=== PATIENT | female | born 1995 | race Caucasian/White ===

== ENCOUNTER 2018-06-20 23:57 | Emergency (ER) | payer MEDICAID ==
[2018-06-20 23:57] VITALS: BMI 17.2
[2018-06-21] MEDS ORDERED: Tdap Vaccine 0.5 ml Vial (10-64 yrs) IM ONE ×2 (00:45→00:54)
[2018-06-21 02:07] VITALS: RESP 16
[2018-06-21 02:36] VITALS: BP 118/79; PULSE 59; TEMP 98.6; O2SAT 100
--- NOTE | 2018-06-21 02:40 | C.PDOC ---
History Of Present Illness 23 year old female presents to the ED for evaluation of right foot pain which began yesterday. Patient states she accidentally dropped a the drawer of a dresser onto her foot while at work. She denies any other injuries or extremity numbness/weakness at this time. Patient is up-to-date with Tetanus immunization. Time Seen by Provider: 06/21/18 00:26 Chief Complaint (Nursing): Lower Extremity Problem/Injury History Per: Patient History/Exam Limitations: no limitations Onset/Duration Of Symptoms: Hrs Current Symptoms Are (Timing): Still Present Additional History Per: Patient Past Medical History Reviewed: Historical Data, Nursing Documentation, Vital Signs Vital Signs: Last Vital Signs Temp 98.6 F 06/21/18 02:36 Pulse 59 L 06/21/18 02:36 Resp 16 06/21/18 02:36 BP 118/79 06/21/18 02:36 Pulse Ox 100 06/21/18 02:46 - Medical History PMH: Anemia Surgical History: No Surg Hx Family History: States: Unknown Family Hx - Social History Hx Tobacco Use: No Hx Alcohol Use: No Hx Substance Use: No - Immunization History Hx Tetanus Toxoid Vaccination: No Hx Influenza Vaccination: No Hx Pneumococcal Vaccination: No Review Of Systems Musculoskeletal: Positive for: Foot Pain (right) Neurological: Negative for: Weakness, Numbness Physical Exam - Physical Exam Appears: Non-toxic, No Acute Distress Skin: Normal Color, Warm, Dry, Other (1cm abrasion to dorum of right foot ) Extremity: Tenderness (to right 2nd and 3rd metatarsals ), Capillary Refill ( less than 2 seconds ), Swelling (to right 2nd and 3rd metatarsals ) Pulses: Left Dorsalis Pedis: Normal, Right Dorsalis Pedis: Normal Neurological/Psych: Oriented x3, Normal Speech, Normal Cognition, Normal Sensation ED Course And Treatment O2 Sat by Pulse Oximetry: 100 (on RA) Pulse Ox Interpretation: Normal Medical Decision Making Medical Decision Making: Impression: 23 year old female with right foot pain Plan: * Right foot XR * reassess and disposition Progress: Right foot XR ordered and reviewed. 0255 xray reveiwed, no fx noted. d/c with post op shoe, nsaids and podiatry f/u Disposition Counseled Patient/Family Regarding: Studies Performed, Diagnosis, Need For Followup, Rx Given - Disposition Referrals: [facility] [Outside] Podiatry Clinic [Outside] Disposition: HOME/ ROUTINE Disposition Time: 02:56 Condition: GOOD Additional Instructions: Please wear post op shoe when walking for comfort. Wear cherelle bandage for comfort. Keep right foot elevated whenever possible. Cold compresses to foot several tinmes a day. Ibuprofen every 4-6 hours. for pain. Follow up with either podiatry clinic; call on Saturday for appointment. 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 - Scribe Statement The provider has reviewed the documentation as recorded by the Scribe (Precious Penny) All medical record entries made by the Scribe were at my direction and personally dictated by me. I have reviewed the chart and agree that the record accurately reflects my personal performance of the history, physical exam, medical decision making, and the department course for this patient. I have also personally directed, reviewed, and agree with the discharge instructions and disposition.
--- NOTE | 2018-06-21 10:05 | RAD ---
Date of service: 06/21/2018 PROCEDURE: Right Foot Radiographs. HISTORY: pain and swelling dorsum foot, dropped something COMPARISON: None. FINDINGS: BONES: No acute fracture or destructive bony lesion identified. A small bone island is seen associated with the cuboid bone anteriorly. JOINTS: Normal. SOFT TISSUES: Limited soft tissue edema is seen at the dorsal midfoot. OTHER FINDINGS: None. IMPRESSION: No acute fracture or dislocation right foot. Limited dorsal midfoot soft tissue edema noted.
== END 2018-06-21 03:04 | disposition home or self-care (01) ==
LOC: C.ER 23:57
DX: S90.31XA Contusion of right foot, initial encounter (principal); W22.8XXA Striking against or struck by other objects, initial encounter; Y92.89 Other specified places as the place of occurrence of the external cause; Y99.0 Civilian activity done for income or pay

== ENCOUNTER 2019-02-21 14:42 | Inpatient (IN) | payer MEDICAID ==
[2019-02-21 14:42] VITALS: BMI 17.2
[2019-02-21] MEDS ORDERED: Sodium Chloride 0.9% 1,000 ML IV ONE ×2 (15:10→18:05)
[2019-02-21] MEDS ORDERED: Dexamethasone 4 mg/1 ml IV STA (15:11)
[2019-02-21] MEDS ORDERED: Dexamethasone 4 mg/1 ml ONE (15:23)
[2019-02-21] MEDS ORDERED: Sodium Chloride 0.9% 1,000 ML ONE (15:23)
--- NOTE | 2019-02-21 15:28 | C.PDOC ---
History Of Present Illness 23 y/o female comes in complaining of a sore throat, difficulty swallowing, fever, nausea, vomiting, and body aches since 4 days ago. Patient reports shes been taking ibuprofen with minimal relief. She denies any other associated s ymptoms. Time Seen by Provider: 02/21/19 14:47 Chief Complaint (Nursing): Flu-like Symptoms History Per: Patient History/Exam Limitations: no limitations Onset/Duration Of Symptoms: Days Current Symptoms Are (Timing): Still Present Past Medical History Reviewed: Historical Data, Nursing Documentation, Vital Signs Vital Signs: Last Vital Signs Temp 99.8 F H 02/21/19 14:44 Pulse 103 H 02/21/19 14:44 Resp 17 02/21/19 14:44 BP 121/89 02/21/19 14:44 Pulse Ox 100 02/21/19 14:44 - Medical History PMH: Anemia Family History: States: Unknown Family Hx - Social History Hx Tobacco Use: No Hx Alcohol Use: Yes Hx Substance Use: No - Immunization History Hx Tetanus Toxoid Vaccination: Yes Hx Influenza Vaccination: Yes Hx Pneumococcal Vaccination: No Review Of Systems Constitutional: Positive for: Fever, Other (Bodyaches). Negative for: Chills ENT: Positive for: Other (Sore throat) Cardiovascular: Negative for: Chest Pain Respiratory: Negative for: Cough, Shortness of Breath Gastrointestinal: Positive for: Nausea, Vomiting. Negative for: Abdominal Pain Genitourinary: Negative for: Dysuria, Hematuria Skin: Negative for: Rash Neurological: Negative for: Headache, Dizziness Physical Exam - Physical Exam Appears: Non-toxic, No Acute Distress, Other (hoarse muffled voice) Skin: Warm, Dry, No Rash Head: Atraumatic, Normacephalic Eye(s): bilateral: PERRL, EOMI Ear(s): Bilateral: Normal Oral Mucosa: Moist Throat: Erythema (markedly erythematous pharynx with bilateral enlarged tonsils with white exudates) Lymphatic: Other (markedly enlarged submandibular adenopathy bilaterally) Cardiovascular: Rhythm Regular, No Murmur Respiratory: No Accessory Muscle Use, No Rales, No Rhonchi, No Wheezing Extremity: No Pedal Edema Extremity: Bilateral: Atraumatic, Normal ROM Neurological/Psych: Oriented x3, Normal Speech, Normal Cognition ED Course And Treatment - Laboratory Results Result Diagrams: 02/21/19 15:34 02/21/19 15:34 O2 Sat by Pulse Oximetry: 100 (RA) Pulse Ox Interpretation: Normal - CT Scan/US Soft Tissue Neck CT Other Rad Studies (CT/US): Read By Radiologist, Radiology Report Reviewed CT/US Interpretation: IMPRESSION: Enlargement of the palatine tonsils with lesser enlargement of the lingual and adenoidal tonsils. Asymmetric, left greater than right. Mild displacement of the airway towards the right with mild narrowing. No abscess. There is edema or inflammatory change seen in the left parapharyngeal space. Cervical lymphadenopathy bilaterally. Medical Decision Making Medical Decision Making: Plan: --Labs --Blood culture --Rapid Strep --POC urine --UA --Decadron 10 mg IV --IV fluids 1L --Tylenol PO --Zofran 4 mg IVP --CT soft tissue neck concerned for SYSTEM ADMINISTRATION MANAGER. 1744 ct neg for abscess but show some mild narrowing of airway. pt has no stridor, no drooling. blood sent for monospot, will admot to Dr Dante Penny for observation and iv hydration. 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 - Scribe Statement The provider has reviewed the documentation as recorded by the Scribe Coty Strauss All medical record entries made by the Memeibmele were at my direction and p ersonally dictated by me. I have reviewed the chart and agree that the record accurately reflects my personal performance of the history, physical exam, medical decision making, and the department course for this patient. I have also personally directed, reviewed, and agree with the discharge instructions and disposition.
[2019-02-21 15:38] LABS: BASO # 0.1 K/uL (0.0-0.2); BASO % 0.4 % (0.0-2.0); EOS # 0.2 K/uL (0.0-0.7); EOS % 1.5 % (0.0-4.0); HEMOGLOBIN 12.4 g/dL (11.0-16.0); LYMPH # 1.8 K/uL (1.0-4.3); LYMPH % 13.8 % (20.0-40.0); MEAN CELL VOLUME 85.1 fL (81.0-99.0); MEAN CORPUSCULAR HEMOGLOBIN 28.2 pg (27.0-31.0); MEAN CORPUSCULAR HGB CONC 33.1 g/dL (33.0-37.0); MEAN PLATELET VOLUME 8.8 fL (7.2-11.7); MONO # 2.3 K/uL (0.0-0.8); MONO % 17.9 % (0.0-10.0); NEUT # 8.6 K/uL (1.8-7.0); NEUT % 66.4 % (50.0-75.0); RBC 4.41 Mil/uL (3.80-5.20); RED CELL DISTRIBUTION WIDTH 13.3 % (11.5-14.5); WHITE BLOOD COUNT 12.9 K/uL (4.8-10.8)
[2019-02-21 15:51] LABS: ALB/GLOB RATIO 1.2 (1.0-2.1); ALBUMIN 4.6 g/dL (3.5-5.0); ALT/SGPT 18 U/L (9-52); AST/SGOT 21 U/L (14-36); BLOOD UREA NITROGEN 6 mg/dL (7-17); CALCIUM 9.6 mg/dl (8.6-10.4); GFR NON-AFRICAN AMERICAN > 60
[2019-02-21] MEDS ORDERED: Potassium Chloride 20 mEq/15 ml LIQ UD PO STA (15:54)
[2019-02-21 15:57] LABS: SQUAMOUS EPITHIAL 6 /hpf (0-5); URINE BACTERIA RARE (<OCC); URINE BILIRUBIN 1+ (NEGATIVE); URINE BLOOD NEGATIVE (NEGATIVE); URINE CLARITY Hazy (Clear); URINE COLOR Amber (YELLOW); URINE GLUCOSE (UA) NORMAL (Normal); URINE LEUKOCYTE ESTERASE 2+ Leu/uL (Negative); URINE PROTEIN 2+ mg/dL (NEGATIVE)
[2019-02-21] MEDS ORDERED: Iodixanol 320 MG/ML 100 ML BOTTLE IV ONE (15:57)
[2019-02-21] MEDS ORDERED: Clindamycin 600mg/50ml D5W 600 MG/50 ML VIAL IVPB SCH (16:00)
[2019-02-21] MEDS ORDERED: Potassium Chloride 20 mEq ER Tab PO ONE (16:04)
[2019-02-21] MEDS ORDERED: Clindamycin 600mg/50ml NS 600 MG/50 ML BAG IVPB ONE (16:05)
[2019-02-21] MEDS ORDERED: Clindamycin 600mg/50ml D5W 600 MG/50 ML VIAL IVPB STA (16:10)
[2019-02-21] MEDS ORDERED: Potassium Chloride 20 mEq/15 ml LIQ UD ONE (16:11)
--- NOTE | 2019-02-21 17:33 | CT ---
Date of service: 02/21/2019 PROCEDURE: CT NECK WITH CONTRAST HISTORY: bilateral tonsil swelling, hoarse voice COMPARISON: None available. TECHNIQUE: CT of the neck with intravenous contrast. Coronal and sagittal reformats generated. Intravenous contrast dose: 100 mL Visipaque 320 Radiation dose: Total exam DLP = 374.34 mGy-cm. This CT exam was performed using one or more of the following dose reduction techniques: Automated exposure control, adjustment of the mA and/or kV according to patient size, and/or use of iterative reconstruction technique. FINDINGS: NASOPHARYNX: Mild asymmetric fullness of the left nasopharynx common nonspecific. Direct visualization is suggested. SUPRAHYOID NECK: Marked enlargement of the palatine tonsils bilaterally, left greater than right. No abscess identified. There is mild enlargement of the lingual tonsils. There is mild enlargement of the adenoidal tonsils. There is hazy density or edema of the left parapharyngeal space consistent with an inflammatory process. There is mild narrowing of the airway with displacement towards the right. The epiglottis is normal in appearance. There is mild asymmetry of the valleculae likely due to collapse of the left locule at the time of this examination. INFRAHYOID NECK: Unremarkable larynx, hypopharynx, and supraglottic space. Vocal cords intact. MASS: None. GLANDS: Parotid and submandibular glands unremarkable. Normal size thyroid gland, without nodule. LYMPH NODES: Bilateral enlarged cervical nodes up to 1.5 cm in short axis. Nonspecific. CERVICAL SPINE: No fracture or focal lesion. VASCULAR STRUCTURES: Unremarkable. OTHER FINDINGS: None. IMPRESSION: Enlargement of the palatine tonsils with lesser enlargement of the lingual and adenoidal tonsils. Asymmetric, left greater than right. Mild displacement of the airway towards the right with mild narrowing. No abscess. There is edema or inflammatory change seen in the left parapharyngeal space. Cervical lymphadenopathy bilaterally.
[2019-02-21] MEDS: Clindamycin 300 MG in Sodium Chloride 0.9% 50 ML IVPB SCH (21:08)
[2019-02-21] MEDS ORDERED: MethylPREDNISolone 40 mg Vial IVP SCH (22:00)
--- NOTE | 2019-02-21 22:33 | CP.PCM.CON ---
History of Present Illness - History of Present Illness History of Present Illness: 23 y/o female with no significant PMH c/o complaining of a sore throat, difficulty swallowing, fever, nausea, vomiting, and body aches for 4 days.She took ibuprofen with minimal relief. no drooling or disfficulty breathing.Has dry cough Review of Systems - Constitutional Constitutional: Anorexia, Chills, Fever. absent: Night Sweats - EENT Eyes: absent: Discharge, Itchy Eyes Ears: absent: Ear Discharge, Dizziness Nose/Mouth/Throat: Sore Throat, Neck Pain. absent: Nasal Congestion, Hoarsness - Cardiovascular Cardiovascular: absent: Chest Pain, Leg Edema, Palpitations - Respiratory Respiratory: Cough. absent: Dyspnea, Wheezing, Stridor - Gastrointestinal Gastrointestinal: Nausea, Vomiting. absent: Abdominal Pain - Genitourinary Genitourinary: absent: Dysuria - Musculoskeletal Musculoskeletal: absent: Arthralgias, Muscle Cramps - Integumentary Integumentary: absent: Dry Skin, Rash - Neurological Neurological: absent: Dizziness, Headaches - Endocrine Endocrine: absent: Palpitations, Polyuria - Hematologic/Lymphatic Hematologic: absent: Easy Bleeding Past Patient History - Past Medical History & Family History Past Medical History?: No - Past Social History Smoking Status: Never Smoked Occupation: student at [employer] Alcohol: None Drugs: Denies Home Situation {Lives}: Alone - HEMATOLOGICAL/ONCOLOGICAL Hx Anemia: Yes (iron transfusions in the past) - PSYCHIATRIC Hx Substance Use: No - SURGICAL HISTORY Hx Surgeries: No - ANESTHESIA Hx Anesthesia: No Meds Allergies/Adverse Reactions: Allergies Allergy/AdvReac Type Severity Reaction Status Date / Time No Known Allergies Allergy Verified 02/21/19 14:47 - Medications Medications: Current Medications Dexamethasone (Decadron Inj) 10 mg IVP Q12H SORIN Stop: 02/22/19 12:01 Ceftriaxone Sodium 1 gm/ (Sodium Chloride) 100 mls @ 100 mls/hr IVPB DAILY SORIN; Protocol Clindamycin Phosphate 300 mg/ (Sodium Chloride) 52 mls @ 100 mls/hr IVPB Q8H SORIN; Protocol Last Admin: 02/21/19 21:08 Dose: 100 mls/hr Ketorolac Tromethamine (Toradol) 15 mg IVP Q8 PRN PRN Reason: Pain, moderate (4-7) Ondansetron HCl (Zofran Inj) 4 mg IVP Q6 PRN PRN Reason: nausea Pantoprazole Sodium (Protonix Inj) 40 mg IVP DAILY SORIN Pneumococcal Polyvalent Vaccine (Pneumovax 23 Vaccine) 0.5 ml IM .ONCE ONE Stop: 02/23/19 10:01 Physical Exam - Constitutional Appears: Non-toxic, No Acute Distress - Head Exam Head Exam: ATRAUMATIC, NORMAL INSPECTION, NORMOCEPHALIC - Eye Exam Eye Exam: EOMI, PERRL. absent: Conjunctival injection, Scleral icterus - ENT Exam ENT Exam: Mucous Membranes Moist, Normal External Ear Exam Additional comments: Swollen ,erythematous tonsils with enlarged tonsils with white exudate - Neck Exam Neck exam: Positive for: Lymphadenopathy Additional comments: bilateral submandibular Lymphnodes enlarged - Respiratory Exam Respiratory Exam: Clear to Auscultation Bilateral, NORMAL BREATHING PATTERN. absent: Rhonchi, Wheezes, Stridor - Cardiovascular Exam Cardiovascular Exam: REGULAR RHYTHM - GI/Abdominal Exam GI & Abdominal Exam: Normal Bowel Sounds, Soft. absent: Tenderness - Extremities Exam Extremities exam: Positive for: normal inspection. Negative for: pedal edema - Neurological Exam Neurological exam: Alert, Oriented x3 Results - Vital Signs Recent Vital Signs: Last Vital Signs Temp 97.7 F 02/21/19 20:01 Pulse 94 H 02/21/19 20:01 Resp 20 02/21/19 20:01 BP 121/85 02/21/19 20:01 Pulse Ox 100 02/21/19 20:27 - Labs Result Diagrams: 02/21/19 15:34 02/21/19 15:34 Labs: Laboratory Results - last 24 hr 02/21/19 02/21/19 02/21/19 15:34 15:34 15:34 WBC 12.9 H RBC 4.41 Hgb 12.4 D Hct 37.6 MCV 85.1 D MCH 28.2 MCHC 33.1 RDW 13.3 Plt Count 274 MPV 8.8 Neut % (Auto) 66.4 Lymph % (Auto) 13.8 L [place] % (Auto) 17.9 H Eos % (Auto) 1.5 Baso % (Auto) 0.4 Neut # (Auto) 8.6 H Lymph # (Auto) 1.8 [place] # (Auto) 2.3 H Eos # (Auto) 0.2 Baso # (Auto) 0.1 Sodium 137 Potassium 3.3 L Chloride 99 Carbon Dioxide 29 Anion Gap 12 BUN 6 L Creatinine 0.7 Est GFR ( Amer) > 60 Est GFR (Non-Af Amer) > 60 Random Glucose 93 D Calcium 9.6 Total Bilirubin 1.0 AST 21 ALT 18 Alkaline Phosphatase 78 Total Protein 8.3 Albumin 4.6 Globulin 3.7 Albumin/Globulin Ratio 1.2 Urine Color Urine Clarity Urine pH Ur Specific [place] Urine Protein Urine Glucose (UA) Urine Ketones Urine Blood Urine Nitrate Urine Bilirubin Urine Urobilinogen Ur Leukocyte Esterase Urine WBC (Auto) Urine RBC (Auto) Ur Squamous Epith Cells Urine Bacteria Hyaline Casts Infectious [place] Assay Influenza Typ A,B (EIA) Grp A Beta Strep Ag Negative 02/21/19 02/21/19 02/21/19 15:34 17:54 18:29 WBC RBC Hgb Hct MCV MCH MCHC RDW Plt Count MPV Neut % (Auto) Lymph % (Auto) [place] % (Auto) Eos % (Auto) Baso % (Auto) Neut # (Auto) Lymph # (Auto) [place] # (Auto) Eos # (Auto) Baso # (Auto) Sodium Potassium Chloride Carbon Dioxide Anion Gap BUN Creatinine Est GFR ( Amer) Est GFR (Non-Af Amer) Random Glucose Calcium Total Bilirubin AST ALT Alkaline Phosphatase Total Protein Albumin Globulin Albumin/Globulin Ratio Urine Color [place] Urine Clarity Hazy Urine pH 5.0 Ur Specific [place] 1.029 Urine Protein 2+ H Urine Glucose (UA) Normal Urine Ketones 2+ H Urine Blood Negative Urine Nitrate Negative Urine Bilirubin 1+ H Urine Urobilinogen 4.0 H Ur Leukocyte Esterase 2+ H Urine WBC (Auto) 30 H Urine RBC (Auto) 2 Ur Squamous Epith Cells 6 H Urine Bacteria Rare Hyaline Casts 6-10 H Infectious [place] Assay Negative Influenza Typ A,B (EIA) Negative for flu a/b Grp A Beta Strep Ag Assessment & Plan - Assessment and Plan (Free Text) Assessment: 1.Pharyngitis- CT neck with Enlargement of the palatine tonsils with lesser enlargement of the lingual and adenoidal tonsils. Asymmetric, left greater than right. Mild dis placement of the airway towards the right with mild narrowing. No abscess. There is edema or inflammatory change seen in the left parapharyngeal space. Cervical lymphadenopathy bilaterally received antibiotics and dexamethasone patient feels better since admission,no drooling or stridor 2.hypokalemia potassium replaced,f/u with repeat continue monitoring on 3T
[2019-02-22] MEDS: Dexamethasone 4 mg/1 ml IVP SCH ×2 (00:27→12:47)
[2019-02-22] MEDS: Clindamycin 300 MG in Sodium Chloride 0.9% 50 ML IVPB SCH ×3 (03:10→20:00)
[2019-02-22 08:00] LABS: BASO % 0.1 % (0.0-2.0); HEMOGLOBIN 11.4 g/dL (11.0-16.0); LYMPH # 1.1 K/uL (1.0-4.3); LYMPH % 9.8 % (20.0-40.0); MEAN CELL VOLUME 84.7 fL (81.0-99.0); MEAN CORPUSCULAR HEMOGLOBIN 28.8 pg (27.0-31.0); MEAN CORPUSCULAR HGB CONC 33.9 g/dL (33.0-37.0); MEAN PLATELET VOLUME 8.5 fL (7.2-11.7); MONO # 0.5 K/uL (0.0-0.8); MONO % 4.4 % (0.0-10.0); NEUT # 9.8 K/uL (1.8-7.0); NEUT % 85.7 % (50.0-75.0); NRBC % 0.1 % (0.0-2.0); PLATELET COUNT 283 K/uL (130-400); RBC 3.96 Mil/uL (3.80-5.20); RED CELL DISTRIBUTION WIDTH 13.3 % (11.5-14.5); WHITE BLOOD COUNT 11.4 K/uL (4.8-10.8)
[2019-02-22 08:19] LABS: ALB/GLOB RATIO 1.2 (1.0-2.1); ALBUMIN 3.6 g/dL (3.5-5.0); ALT/SGPT 20 U/L (9-52); AST/SGOT 18 U/L (14-36); BLOOD UREA NITROGEN 6 mg/dL (7-17); CALCIUM 8.8 mg/dl (8.6-10.4); GFR NON-AFRICAN AMERICAN > 60
[2019-02-22 11:39] LABS: BANDS 2 % (0-2); LYMPHOCYTE 9 % (20-40); MONOCYTE 4 % (0-10); NEUTROPHIL 85 % (50-75); PLATELET ESTIMATE NORMAL (NORMAL); TOTAL CELLS COUNTED 100
[2019-02-22 11:40] LABS: ANISOCYTOSIS SLIGHT; TOXIC GRANULATION PRESENT
[2019-02-22 11:48] LABS: HYPOCHROMIC SLIGHT; POLYCHROMIC SLIGHT
--- NOTE | 2019-02-22 15:33 | CP.PCM.HP ---
Present on Admission - Present on Admission Any Indicators Present on Admission: No Past Patient History - Past Medical History & Family History Past Medical History?: No - Past Social History Smoking Status: Never Smoked Occupation: student at [employer] Alcohol: None Drugs: Denies Home Situation {Lives}: Alone - HEMATOLOGICAL/ONCOLOGICAL Hx Anemia: Yes (iron transfusions in the past) - PSYCHIATRIC Hx Substance Use: No - SURGICAL HISTORY Hx Surgeries: No - ANESTHESIA Hx Anesthesia: No Meds Allergies/Adverse Reactions: Allergies Allergy/AdvReac Type Severity Reaction Status Date / Time No Known Allergies Allergy Verified 02/21/19 14:47 Physical Exam - Constitutional Appears: Well - Head Exam Head Exam: ATRAUMATIC, NORMAL INSPECTION, NORMOCEPHALIC - Eye Exam Eye Exam: EOMI, Normal appearance, PERRL Pupil Exam: NORMAL ACCOMODATION, PERRL - ENT Exam ENT Exam: Mucous Membranes Moist, Normal Exam - Neck Exam Neck exam: Positive for: Normal Inspection - Respiratory Exam Respiratory Exam: Decreased Breath Sounds - Cardiovascular Exam Cardiovascular Exam: REGULAR RHYTHM, +S1, +S2 - GI/Abdominal Exam GI & Abdominal Exam: Diminished Bowel Sounds, Soft - Rectal Exam Rectal Exam: Deferred Results - Vital Signs Recent Vital Signs: Last Vital Signs Temp 98 F 02/22/19 07:30 Pulse 79 02/22/19 07:30 Resp 20 02/22/19 07:30 BP 119/83 02/22/19 07:30 Pulse Ox 97 02/22/19 12:00 - Labs Result Diagrams: 02/22/19 07:50 02/22/19 07:50 Labs: Laboratory Results - last 24 hr 02/21/19 02/21/19 02/21/19 15:34 15:34 15:34 WBC 12.9 H RBC 4.41 Hgb 12.4 D Hct 37.6 MCV 85.1 D MCH 28.2 MCHC 33.1 RDW 13.3 Plt Count 274 MPV 8.8 Neut % (Auto) 66.4 Lymph % (Auto) 13.8 L [place] % (Auto) 17.9 H Eos % (Auto) 1.5 Baso % (Auto) 0.4 Neut # (Auto) 8.6 H Lymph # (Auto) 1.8 [place] # (Auto) 2.3 H Eos # (Auto) 0.2 Baso # (Auto) 0.1 Neutrophils % (Manual) Band Neutrophils % Lymphocytes % (Manual) Monocytes % (Manual) Toxic Granulation Platelet Estimate Polychromasia Hypochromasia (manual) Anisocytosis (manual) Sodium 137 Potassium 3.3 L Chloride 99 Carbon Dioxide 29 Anion Gap 12 BUN 6 L Creatinine 0.7 Est GFR ( Amer) > 60 Est GFR (Non-Af Amer) > 60 Random Glucose 93 D Calcium 9.6 Total Bilirubin 1.0 AST 21 ALT 18 Alkaline Phosphatase 78 Total Protein 8.3 Albumin 4.6 Globulin 3.7 Albumin/Globulin Ratio 1.2 Urine Color Urine Clarity Urine pH Ur Specific [place] Urine Protein Urine Glucose (UA) Urine Ketones Urine Blood Urine Nitrate Urine Bilirubin Urine Urobilinogen Ur Leukocyte Esterase Urine WBC (Auto) Urine RBC (Auto) Ur Squamous Epith Cells Urine Bacteria Hyaline Casts Infectious [place] Assay Influenza Typ A,B (EIA) Grp A Beta Strep Ag Negative 02/21/19 02/21/19 02/21/19 15:34 17:54 18:29 WBC RBC Hgb Hct MCV MCH MCHC RDW Plt Count MPV Neut % (Auto) Lymph % (Auto) [place] % (Auto) Eos % (Auto) Baso % (Auto) Neut # (Auto) Lymph # (Auto) [place] # (Auto) Eos # (Auto) Baso # (Auto) Neutrophils % (Manual) Band Neutrophils % Lymphocytes % (Manual) Monocytes % (Manual) Toxic Granulation Platelet Estimate Polychromasia Hypochromasia (manual) Anisocytosis (manual) Sodium Potassium Chloride Carbon Dioxide Anion Gap BUN Creatinine Est GFR ( Amer) Est GFR (Non-Af Amer) Random Glucose Calcium Total Bilirubin AST ALT Alkaline Phosphatase Total Protein Albumin Globulin Albumin/Globulin Ratio Urine Color [place] Urine Clarity Hazy Urine pH 5.0 Ur Specific [place] 1.029 Urine Protein 2+ H Urine Glucose (UA) Normal Urine Ketones 2+ H Urine Blood Negative Urine Nitrate Negative Urine Bilirubin 1+ H Urine Urobilinogen 4.0 H Ur Leukocyte Esterase 2+ H Urine WBC (Auto) 30 H Urine RBC (Auto) 2 Ur Squamous Epith Cells 6 H Urine Bacteria Rare Hyaline Casts 6-10 H Infectious [place] Assay Negative Influenza Typ A,B (EIA) Negative for flu a/b Grp A Beta Strep Ag 02/22/19 02/22/19 07:50 07:50 WBC 11.4 H RBC 3.96 Hgb 11.4 Hct 33.6 L MCV 84.7 MCH 28.8 MCHC 33.9 RDW 13.3 Plt Count 283 MPV 8.5 Neut % (Auto) 85.7 H Lymph % (Auto) 9.8 L [place] % (Auto) 4.4 Eos % (Auto) 0.0 Baso % (Auto) 0.1 Neut # (Auto) 9.8 H Lymph # (Auto) 1.1 [place] # (Auto) 0.5 Eos # (Auto) 0.0 Baso # (Auto) 0.0 Neutrophils % (Manual) 85 H Band Neutrophils % 2 Lymphocytes % (Manual) 9 L Monocytes % (Manual) 4 Toxic Granulation Present Platelet Estimate Normal Polychromasia Slight Hypochromasia (manual) Slight Anisocytosis (manual) Slight Sodium 139 Potassium 3.9 Chloride 108 H Carbon Dioxide 24 Anion Gap 11 BUN 6 L Creatinine 0.5 L Est GFR ( Amer) > 60 Est GFR (Non-Af Amer) > 60 Random Glucose 126 H D Calcium 8.8 Total Bilirubin 0.4 AST 18 ALT 20 Alkaline Phosphatase 68 Total Protein 6.8 Albumin 3.6 Globulin 3.1 Albumin/Globulin Ratio 1.2 Urine Color Urine Clarity Urine pH Ur Specific [place] Urine Protein Urine Glucose (UA) Urine Ketones Urine Blood Urine Nitrate Urine Bilirubin Urine Urobilinogen Ur Leukocyte Esterase Urine WBC (Auto) Urine RBC (Auto) Ur Squamous Epith Cells Urine Bacteria Hyaline Casts Infectious [place] Assay Influenza Typ A,B (EIA) Grp A Beta Strep Ag Assessment & Plan - Assessment and Plan (Free Text) Plan: Continue IV Rocephin IV clindamycin Pantoprazole Status post ICU Awaiting ENT consultations ID consultations Labs reviewed Medicine reviewed Vital signs reviewed
--- NOTE | 2019-02-22 23:10 | CP.PCM.CON ---
History of Present Illness - History of Present Illness History of Present Illness: INFECTIOUS DISEASE CONSULT; HPI; 23 y/o female with no significant PMH c/o complaining of a sore throat, difficulty swallowing, fever, nausea, vomiting, and body aches for 4 days.She took ibuprofen with minimal relief. no drooling or disfficulty breathing.Has dry cough . PATIENT WAS PLACED ON iv CEFTRIAXONE 1 G ONCE A DAY DAILY/AND iv cLEOCIN 300 MG EVERY 8 HOURLY. PATIENT ALSO WAS PLACED ON DEXAMETHASONE 10 MG iv PIGGYBACK EVERY 12 HOURLY 2 DOSES. PATIENT PRESENTLY HAS LESS DYSPHAGIA. RAPID GROUP A STREP ANTIGEN IS NEGATIVE.SO IS mONOSPOT. rapid influenza antigen also negative. INFECTIOUS DISEASE CONSULTATION REQUESTED FOR SORE THROAT,DYSPHAGIA AND LARYNGEAL EDEMA. CT SCAN NECK -FINDINGS NOTED.+ve enlarged palatine tonsils with increased lingual/adenoid tonsils L>RT, mILD NARROWING AND DISPLACEMENT OF AIRWAY TO THE RIGHT, -VE ABSCESS.( see full detail )ENT AWARE. Medical history: denies Allergies: Denies Surgical history:denies Review of Systems - Constitutional Constitutional: Chills, Fever - EENT Nose/Mouth/Throat: Odynophagia, Sore Throat. absent: Hoarsness, Neck Mass - Cardiovascular Cardiovascular: absent: Chest Pain, Dyspnea - Respiratory Respiratory: Cough - Gastrointestinal Gastrointestinal: Nausea, Odynophagia, Vomiting. absent: Abdominal Pain, Diarrhea - Genitourinary Genitourinary: absent: Freq UTI - Musculoskeletal Musculoskeletal: absent: Neck Pain - Neurological Neurological: absent: Disequilibrium, Dizziness - Hematologic/Lymphatic Hematologic: As Per HPI, Lymphadenopathy (bilateral small mobile cervical lymp hadenopathy.). absent: Easy Bleeding, Easy Bruising Past Patient History - Past Medical History & Family History Past Medical History?: No - Past Social History Smoking Status: Never Smoked Occupation: student at [employer] Alcohol: None Drugs: Denies Home Situation {Lives}: Alone - HEMATOLOGICAL/ONCOLOGICAL Hx Anemia: Yes (iron transfusions in the past) - PSYCHIATRIC Hx Substance Use: No - SURGICAL HISTORY Hx Surgeries: No - ANESTHESIA Hx Anesthesia: No Meds Allergies/Adverse Reactions: Allergies Allergy/AdvReac Type Severity Reaction Status Date / Time No Known Allergies Allergy Verified 02/21/19 14:47 - Medications Medications: Current Medications Docusate Sodium (Colace) 100 mg PO DAILY [facility] Ceftriaxone Sodium 1 gm/ (Sodium Chloride) 100 mls @ 100 mls/hr IVPB DAILY [facility]; Protocol Last Admin: 02/22/19 09:56 Dose: 100 mls/hr Clindamycin Phosphate 300 mg/ (Sodium Chloride) 52 mls @ 100 mls/hr IVPB Q8H [facility]; Protocol Last Admin: 02/22/19 20:00 Dose: 100 mls/hr Ketorolac Tromethamine (Toradol) 15 mg IVP Q8 PRN PRN Reason: Pain, moderate (4-7) Ondansetron HCl (Zofran Inj) 4 mg IVP Q6 PRN PRN Reason: nausea Pantoprazole Sodium (Protonix Inj) 40 mg IVP DAILY [facility] Last Admin: 02/22/19 09:57 Dose: 40 mg Pneumococcal Polyvalent Vaccine (Pneumovax 23 Vaccine) 0.5 ml IM .ONCE ONE Stop: 02/23/19 10:01 Physical Exam - Constitutional Appears: No Acute Distress - Head Exam Head Exam: NORMAL INSPECTION - Eye Exam Eye Exam: EOMI, PERRL - ENT Exam ENT Exam: Mucous Membranes Moist (tonsils slightly congested specially left side. No exudates or abscess noted. Positive cervical lymphadenopathy.) - Neck Exam Neck exam: Positive for: Lymphadenopathy - Respiratory Exam Respiratory Exam: Clear to Auscultation Bilateral, NORMAL BREATHING PATTERN. absent: Wheezes - Cardiovascular Exam Cardiovascular Exam: REGULAR RHYTHM, +S1, +S2 - GI/Abdominal Exam GI & Abdominal Exam: Normal Bowel Sounds, Soft - Extremities Exam Extremities exam: Positive for: pedal pulses present. Negative for: calf tenderness, pedal edema - Neurological Exam Neurological exam: Alert, CN II-XII Intact, Oriented x3, Reflexes Normal - Psychiatric Exam Psychiatric exam: Normal Mood - Skin Skin Exam: Normal Color, Warm Results - Vital Signs Recent Vital Signs: Last Vital Signs Temp 98.5 F 02/22/19 16:00 Pulse 81 02/22/19 16:00 Resp 20 02/22/19 16:00 BP 106/71 02/22/19 16:00 Pulse Ox 97 02/22/19 16:53 - Labs Result Diagrams: 02/23/19 07:17 02/23/19 07:17 Labs: Laboratory Results - last 24 hr 02/22/19 02/22/19 07:50 07:50 WBC 11.4 H RBC 3.96 Hgb 11.4 Hct 33.6 L MCV 84.7 MCH 28.8 MCHC 33.9 RDW 13.3 Plt Count 283 MPV 8.5 Neut % (Auto) 85.7 H Lymph % (Auto) 9.8 L Crowley % (Auto) 4.4 Eos % (Auto) 0.0 Baso % (Auto) 0.1 Neut # (Auto) 9.8 H Lymph # (Auto) 1.1 Crowley # (Auto) 0.5 Eos # (Auto) 0.0 Baso # (Auto) 0.0 Neutrophils % (Manual) 85 H Band Neutrophils % 2 Lymphocytes % (Manual) 9 L Monocytes % (Manual) 4 Toxic Granulation Present Platelet Estimate Normal Polychromasia Slight Hypochromasia (manual) Slight Anisocytosis (manual) Slight Sodium 139 Potassium 3.9 Chloride 108 H Carbon Dioxide 24 Anion Gap 11 BUN 6 L Creatinine 0.5 L Est GFR ( Amer) > 60 Est GFR (Non-Af Amer) > 60 Random Glucose 126 H D Calcium 8.8 Total Bilirubin 0.4 AST 18 ALT 20 Alkaline Phosphatase 68 Total Protein 6.8 Albumin 3.6 Globulin 3.1 Albumin/Globulin Ratio 1.2 Assessment & Plan (1) Laryngeal edema Status: Acute (2) Pharyngitis Status: Acute - Assessment and Plan (Free Text) Assessment: PLAN; CASE DISCUSSED WITH ICU TEAM /DIGITAL MUSIC INSTRUCTOR DR NINA. pATIENT PRESENTLY FEELING SLIGHTLY BETTER AFTER DEXAMETHASONE AND ANTIBIOTICS. OKAY TO OBSERVE THE PATIENT ON THE FLOOR. CONTINUE iv ANTIBIOTICS. CXR F/U CULTURES WILL FOLLOW PATIENT,
[2019-02-23] MEDS: Clindamycin 300 MG in Sodium Chloride 0.9% 50 ML IVPB SCH ×3 (04:27→20:22)
[2019-02-23 07:55] LABS: ALB/GLOB RATIO 1.1 (1.0-2.1); ALBUMIN 3.3 g/dL (3.5-5.0); ALT/SGPT 23 U/L (9-52); AST/SGOT 19 U/L (14-36); BASO % 0.2 % (0.0-2.0); BLOOD UREA NITROGEN 6 mg/dL (7-17); CALCIUM 8.8 mg/dl (8.6-10.4); EOS % 0.1 % (0.0-4.0); GFR NON-AFRICAN AMERICAN > 60; LYMPH # 2.9 K/uL (1.0-4.3); LYMPH % 16.6 % (20.0-40.0); MEAN CELL VOLUME 85.5 fL (81.0-99.0); MEAN CORPUSCULAR HEMOGLOBIN 28.1 pg (27.0-31.0); MEAN CORPUSCULAR HGB CONC 32.9 g/dL (33.0-37.0); MEAN PLATELET VOLUME 9.4 fL (7.2-11.7); MONO # 1.9 K/uL (0.0-0.8); MONO % 10.9 % (0.0-10.0); NEUT # 12.6 K/uL (1.8-7.0); NEUT % 72.2 % (50.0-75.0); NRBC % 0.1 % (0.0-2.0); RBC 3.93 Mil/uL (3.80-5.20); RED CELL DISTRIBUTION WIDTH 13.4 % (11.5-14.5)
[2019-02-23 07:59] LABS: WHITE BLOOD COUNT 17.4 K/uL (4.8-10.8)
--- NOTE | 2019-02-23 09:40 | CP.PCM.PN ---
<Iam Jara - Last Filed: 02/23/19 15:29> Subjective - Date & Time of Evaluation Date of Evaluation: 02/23/19 Time of Evaluation: 09:40 - Subjective Subjective: 23 y/o female comes in complaining of a sore throat, difficulty swallowing, fever, nausea, vomiting, and body aches since 4 days ago. Patient described the pain as sharp and throbbing in nature located in her throat. Patient denies any recent travel, shortness of breath, abdominal pain, constipation diarrhea, changes in vision, syncopal episodes, or any other complaints. Medical history: denies Allergies: Denies Surgical history:denies Objective - Vital Signs/Intake and Output Vital Signs (last 24 hours): Temp Pulse Resp BP Pulse Ox 97.8 F 71 16 115/76 98 02/23/19 00:27 02/23/19 00:27 02/23/19 00:27 02/23/19 00:27 02/23/19 08:00 Intake and Output: 02/23/19 02/23/19 06:59 18:59 Intake Total 1380 Balance 1380 - Medications Medications: Current Medications Docusate Sodium (Colace) 100 mg PO DAILY [facility] Last Admin: 02/23/19 09:28 Dose: 100 mg Ceftriaxone Sodium 1 gm/ (Sodium Chloride) 100 mls @ 100 mls/hr IVPB DAILY [facility]; Protocol Last Admin: 02/23/19 09:27 Dose: 100 mls/hr Clindamycin Phosphate 300 mg/ (Sodium Chloride) 52 mls @ 100 mls/hr IVPB Q8H [facility]; Protocol Last Admin: 02/23/19 04:27 Dose: 100 mls/hr Ketorolac Tromethamine (Toradol) 15 mg IVP Q8 PRN PRN Reason: Pain, moderate (4-7) Last Admin: 02/23/19 07:09 Dose: 15 mg Ondansetron HCl (Zofran Inj) 4 mg IVP Q6 PRN PRN Reason: nausea Pantoprazole Sodium (Protonix Inj) 40 mg IVP DAILY [facility] Last Admin: 02/23/19 09:29 Dose: 40 mg Pneumococcal Polyvalent Vaccine (Pneumovax 23 Vaccine) 0.5 ml IM .ONCE ONE Stop: 02/23/19 10:01 Last Admin: 02/23/19 09:29 Dose: Not Given - Labs Labs: 02/23/19 07:17 02/23/19 07:17 - Head Exam Head Exam: ATRAUMATIC, NORMAL INSPECTION, NORMOCEPHALIC - Eye Exam Eye Exam: EOMI, Normal appearance, PERRL. absent: Periorbital tenderness Pupil Exam: NORMAL ACCOMODATION, PERRL. absent: Irregular, Unequal - ENT Exam ENT Exam: Mucous Membranes Moist, Normal Oropharynx - Respiratory Exam Respiratory Exam: Clear to Ausculation Bilateral, NORMAL BREATHING PATTERN - Cardiovascular Exam Cardiovascular Exam: REGULAR RHYTHM, +S1, +S2 - GI/Abdominal Exam GI & Abdominal Exam: Soft, Normal Bowel Sounds. absent: Hyperactive Bowel Sounds - Extremities Exam Extremities Exam: Normal Inspection. absent: Full ROM, Pedal Edema - Back Exam Back Exam: NORMAL INSPECTION. absent: CVA tenderness (R), paraspinal tenderness - Neurological Exam Neurological Exam: Alert, Awake, CN II-XII Intact, Oriented x3 - Psychiatric Exam Psychiatric exam: Normal Affect, Normal Mood. absent: Depressed - Skin Skin Exam: Dry, Intact, Normal Color Assessment and Plan - Assessment and Plan (Free Text) Assessment: 23 year old female presents to the hospital with shortness of breath for the past couple of days. Plan: 1.Laryngeal edema Soft tissue neck ct: Enlargement of the palatine tonsils with lesser enlargement of the lingual and adenoidal tonsils. Asymmetric, left greater than right. Mild displacement of the airway towards the right with mild narrowing. No abscess. There is edema or inflammatory change seen in the left parapharyngeal space. Cervical lymphadenopathy bilaterally. -ICU consulted. :continue monitoring on 3T -ENT Dr Turner consulted ---> Help appreciated -Infectious Disease consulted---> Help appreciated. Medications: Ceftriaxone 1gm IVPB Daily Clindamycin 300mg IVPB Q8 Daily Zofran 4mg IVP Q6 PRN Toradol 15mg IVP Q8 PRN PPX -Protonix 40mg IVP Daily Dispo: Expected to go to the O.R. tomorrow for tonsillectomy. NPO past midnight. All management per Attending Dr. Ethel Penny. Iam Jara, PGY-2 <Bharat Cook - Last Filed: 02/23/19 23:52> Objective - Vital Signs/Intake and Output Vital Signs (last 24 hours): Temp Pulse Resp BP Pulse Ox 98.4 F 77 18 127/84 97 02/23/19 15:57 02/23/19 15:57 02/23/19 15:58 02/23/19 15:57 02/23/19 15:58 Intake and Output: 02/23/19 02/24/19 18:59 06:59 Intake Total 550 410 Balance 550 410 - Medications Medications: Current Medications Docusate Sodium (Colace) 100 mg PO DAILY [facility] Last Admin: 02/23/19 09:28 Dose: 100 mg Ceftriaxone Sodium 1 gm/ (Sodium Chloride) 100 mls @ 100 mls/hr IVPB DAILY [facility]; Protocol Last Admin: 02/23/19 09:27 Dose: 100 mls/hr Clindamycin Phosphate 300 mg/ (Sodium Chloride) 52 mls @ 100 mls/hr IVPB Q8H [facility]; Protocol Last Admin: 02/23/19 20:22 Dose: 100 mls/hr Ketorolac Tromethamine (Toradol) 15 mg IVP Q8 PRN PRN Reason: Pain, moderate (4-7) Last Admin: 02/23/19 15:45 Dose: 15 mg Ondansetron HCl (Zofran Inj) 4 mg IVP Q6 PRN PRN Reason: nausea Pantoprazole Sodium (Protonix Inj) 40 mg IVP DAILY [facility] Last Admin: 02/23/19 09:29 Dose: 40 mg - Labs Labs: 02/23/19 07:17 02/23/19 07:17
[2019-02-23] MEDS ORDERED: Pneumococcal 23-Valent Vaccine IM ONE (10:00)
--- NOTE | 2019-02-23 19:20 | CP.PCM.PN ---
Subjective - Date & Time of Evaluation Date of Evaluation: 02/23/19 - Subjective Subjective: patient was seen and examined no nausea no diarrhea no shortness of breath Objective - Vital Signs/Intake and Output Vital Signs (last 24 hours): Temp Pulse Resp BP Pulse Ox 98.4 F 77 18 127/84 97 02/23/19 15:57 02/23/19 15:57 02/23/19 15:58 02/23/19 15:57 02/23/19 15:58 Intake and Output: 02/23/19 02/24/19 18:59 06:59 Intake Total 550 Balance 550 - Medications Medications: Current Medications Docusate Sodium (Colace) 100 mg PO DAILY [facility] Last Admin: 02/23/19 09:28 Dose: 100 mg Ceftriaxone Sodium 1 gm/ (Sodium Chloride) 100 mls @ 100 mls/hr IVPB DAILY [facility]; Protocol Last Admin: 02/23/19 09:27 Dose: 100 mls/hr Clindamycin Phosphate 300 mg/ (Sodium Chloride) 52 mls @ 100 mls/hr IVPB Q8H [facility]; Protocol Last Admin: 02/23/19 12:07 Dose: 100 mls/hr Ketorolac Tromethamine (Toradol) 15 mg IVP Q8 PRN PRN Reason: Pain, moderate (4-7) Last Admin: 02/23/19 15:45 Dose: 15 mg Ondansetron HCl (Zofran Inj) 4 mg IVP Q6 PRN PRN Reason: nausea Pantoprazole Sodium (Protonix Inj) 40 mg IVP DAILY [facility] Last Admin: 02/23/19 09:29 Dose: 40 mg - Labs Labs: 02/23/19 07:17 02/23/19 07:17 - Constitutional Appears: Well - Head Exam Head Exam: ATRAUMATIC, NORMAL INSPECTION, NORMOCEPHALIC - Eye Exam Eye Exam: EOMI, Normal appearance, PERRL Pupil Exam: NORMAL ACCOMODATION, PERRL - ENT Exam ENT Exam: Mucous Membranes Moist, Normal Exam - Neck Exam Neck Exam: Full ROM, Normal Inspection. absent: Lymphadenopathy - Respiratory Exam Respiratory Exam: Decreased Breath Sounds - Cardiovascular Exam Cardiovascular Exam: REGULAR RHYTHM, +S1, +S2 - GI/Abdominal Exam GI & Abdominal Exam: Soft, Diminished Bowel Sounds - Rectal Exam Rectal Exam: Deferred Assessment and Plan - Assessment and Plan (Free Text) Plan: zofran injection sodium chloride colace Protonix Toradol labs reviewed case seen and dw with staff
--- NOTE | 2019-02-23 20:00 | OP ---
PROCEDURE DATE: 02/23/2019 PREOPERATIVE DIAGNOSIS: Possible airway obstruction. POSTOPERATIVE DIAGNOSIS: Possible airway obstruction. PROCEDURE: Flexible laryngoscopy. SURGEON: Oscar Turner MD. SIGNIFICANT FINDINGS: Airway obstruction as noted. DESCRIPTION OF PROCEDURE: The patient was brought in to the room, was placed in the supine position. The nose was decongested using Afrin. Flexible laryngoscope was inserted into the nasal cavity, passed to the oropharynx and hypopharynx. The base of tongue, vallecula, pharyngeal smith, epiglottis, AE folds, false cords, true cords, arytenoids piriform sinuses were brought into view. No masses or lesions were noted. No erythema or edema was noted. Airway is okay. Oscar Turner MD
[2019-02-24] MEDS: Clindamycin 300 MG in Sodium Chloride 0.9% 50 ML IVPB SCH ×4 (03:15→21:19)
[2019-02-24 06:17] LABS: BASO % 0.4 % (0.0-2.0); EOS # 0.3 K/uL (0.0-0.7); EOS % 2.5 % (0.0-4.0); LYMPH # 3.9 K/uL (1.0-4.3); MEAN CELL VOLUME 84.7 fL (81.0-99.0); MEAN CORPUSCULAR HEMOGLOBIN 27.4 pg (27.0-31.0); MEAN CORPUSCULAR HGB CONC 32.3 g/dL (33.0-37.0); MEAN PLATELET VOLUME 8.3 fL (7.2-11.7); MONO # 1.6 K/uL (0.0-0.8); MONO % 13.6 % (0.0-10.0); NEUT # 6.2 K/uL (1.8-7.0); NEUT % 51.5 % (50.0-75.0); NRBC % 0.1 % (0.0-2.0); RBC 4.39 Mil/uL (3.80-5.20); RED CELL DISTRIBUTION WIDTH 13.3 % (11.5-14.5); WHITE BLOOD COUNT 12.1 K/uL (4.8-10.8)
[2019-02-24 06:37] LABS: ALB/GLOB RATIO 1.4 (1.0-2.1); ALT/SGPT 18 U/L (9-52); AST/SGOT 16 U/L (14-36); BLOOD UREA NITROGEN 7 mg/dL (7-17); CALCIUM 8.7 mg/dl (8.6-10.4); GFR NON-AFRICAN AMERICAN > 60
[2019-02-24 06:41] LABS: INR 1.1; PROTHROMBIN TIME 11.8 SECONDS (9.7-12.2)
--- NOTE | 2019-02-24 09:00 | RAD ---
Date of service: 02/24/2019 HISTORY: R/O PNEUMONIA COMPARISON: None available. TECHNIQUE: 1 view obtained. FINDINGS: LUNGS: No active pulmonary disease. PLEURA: No significant pleural effusion identified, no pneumothorax apparent. CARDIOVASCULAR: No aortic atherosclerotic calcification present. Normal cardiac size. No pulmonary vascular congestion. OSSEOUS STRUCTURES: No significant abnormalities. VISUALIZED UPPER ABDOMEN: Normal. OTHER FINDINGS: None. IMPRESSION: No active disease.
--- NOTE | 2019-02-24 09:22 | CP.PCM.PN ---
Subjective - Date & Time of Evaluation Date of Evaluation: 02/24/19 Time of Evaluation: 09:22 - Subjective Subjective: PGY-2 Progress Note Patient seen and examined at bedside. Per nursing no acute events occurred overnight. Patient denies any fevers, chills, headaches, dizziness, chest pain, dizziness, syncopal episodes, or any other complaints. Objective - Vital Signs/Intake and Output Vital Signs (last 24 hours): Temp Pulse Resp BP Pulse Ox 98.2 F 84 20 121/83 95 02/24/19 07:34 02/24/19 07:34 02/24/19 07:34 02/24/19 07:34 02/24/19 07:34 Intake and Output: 02/24/19 02/24/19 06:59 18:59 Intake Total 460 Balance 460 - Medications Medications: Current Medications Docusate Sodium (Colace) 100 mg PO DAILY [facility] Last Admin: 02/23/19 09:28 Dose: 100 mg Ceftriaxone Sodium 1 gm/ (Sodium Chloride) 100 mls @ 100 mls/hr IVPB DAILY [facility]; Protocol Last Admin: 02/23/19 09:27 Dose: 100 mls/hr Clindamycin Phosphate 300 mg/ (Sodium Chloride) 52 mls @ 100 mls/hr IVPB Q8H [facility] ; Protocol Last Admin: 02/24/19 03:15 Dose: 100 mls/hr Ketorolac Tromethamine (Toradol) 15 mg IVP Q8 PRN PRN Reason: Pain, moderate (4-7) Last Admin: 02/23/19 15:45 Dose: 15 mg Ondansetron HCl (Zofran Inj) 4 mg IVP Q6 PRN PRN Reason: nausea Pantoprazole Sodium (Protonix Inj) 40 mg IVP DAILY [facility] Last Admin: 02/23/19 09:29 Dose: 40 mg - Labs Labs: 02/24/19 06:08 02/24/19 06:08 PT 11.8 SECONDS (9.7-12.2) 02/24/19 06:08 INR 1.1 02/24/19 06:08 APTT 31 SECONDS (21-34) 02/24/19 06:08 - Head Exam Head Exam: ATRAUMATIC, NORMAL INSPECTION - Eye Exam Eye Exam: EOMI, Normal appearance, PERRL Pupil Exam: NORMAL ACCOMODATION, PERRL - ENT Exam ENT Exam: Mucous Membranes Moist, Normal Oropharynx - Respiratory Exam Respiratory Exam: Clear to Ausculation Bilateral, NORMAL BREATHING PATTERN. absent: Prolonged Expiratory Phase, Respiratory Distress - Cardiovascular Exam Cardiovascular Exam: REGULAR RHYTHM, +S1, +S2 - GI/Abdominal Exam GI & Abdominal Exam: Soft, Normal Bowel Sounds. absent: Hyperactive Bowel Sounds - Extremities Exam Extremities Exam: Full ROM, Normal Inspection. absent: Pedal Edema - Back Exam Back Exam: NORMAL INSPECTION. absent: paraspinal tenderness - Neurological Exam Neurological Exam: Alert, Awake, CN II-XII Intact, Oriented x3 - Psychiatric Exam Psychiatric exam: Normal Affect, Normal Mood. absent: Depressed - Skin Skin Exam: Dry, Intact Assessment and Plan - Assessment and Plan (Free Text) Assessment: 23 year old female presents to the hospital with shortness of breath for the past couple of days. Plan: 1.Laryngeal edema Soft tissue neck ct: Enlargement of the palatine tonsils with lesser enlargement of the lingual and adenoidal tonsils. Asymmetric, left greater than right. Mild displacement of the airway towards the right with mild narrowing. No abscess. There is edema or inflammatory change seen in the left parapharyngeal space. Cervical lymphadenopathy bilaterally. Mononucleosis, Influenzae, Group B strep all negative -ICU consulted. :continue monitoring on 3T -ENT Dr Turner consulted: Left abscess found in the O.R. and drained. -Infectious Disease consulted---> Help appreciated. Medications: Ceftriaxone 1gm IVPB Daily Clindamycin 300mg IVPB Q8 Daily Zofran 4mg IVP Q6 PRN Toradol 15mg IVP Q8 PRN PPX -Protonix 40mg IVP Daily Dispo: Expected to go home tomorrow pending tolerating diet. All management per Attending Dr. Ethel Penny. Iam Jara, PGY-2
[2019-02-24] MEDS ORDERED: ceFAZolin 1 gm in NS 1 GM/100 ML BAG IVPB ONE (10:02)
--- NOTE | 2019-02-24 11:25 | CP.PCM.PN ---
Subjective - Date & Time of Evaluation Date of Evaluation: 02/24/19 - Subjective Subjective: no events overnight no nausea no vomiting no fever Objective - Vital Signs/Intake and Output Vital Signs (last 24 hours): Temp Pulse Resp BP Pulse Ox 98.2 F 84 20 121/83 95 02/24/19 07:34 02/24/19 07:34 02/24/19 07:34 02/24/19 07:34 02/24/19 07:34 Intake and Output: 02/24/19 02/24/19 06:59 18:59 Intake Total 460 Balance 460 - Medications Medications: Current Medications Docusate Sodium (Colace) 100 mg PO DAILY [facility] Last Admin: 02/24/19 10:06 Dose: Not Given Ceftriaxone Sodium 1 gm/ (Sodium Chloride) 100 mls @ 100 mls/hr IVPB DAILY [facility]; Protocol Last Admin: 02/24/19 10:19 Dose: 100 mls/hr Clindamycin Phosphate 300 mg/ (Sodium Chloride) 52 mls @ 100 mls/hr IVPB Q8H [facility]; Protocol Last Admin: 02/24/19 03:15 Dose: 100 mls/hr Ketorolac Tromethamine (Toradol) 15 mg IVP Q8 PRN PRN Reason: Pain, moderate (4-7) Last Admin: 02/24/19 10:18 Dose: 15 mg Ondansetron HCl (Zofran Inj) 4 mg IVP Q6 PRN PRN Reason: nausea Pantoprazole Sodium (Protonix Inj) 40 mg IVP DAILY [facility] Last Admin: 02/24/19 10:17 Dose: 40 mg - Labs Labs: 02/24/19 06:08 02/24/19 06:08 PT 11.8 SECONDS (9.7-12.2) 02/24/19 06:08 INR 1.1 02/24/19 06:08 APTT 31 SECONDS (21-34) 02/24/19 06:08 - Constitutional Appears: Well - Head Exam Head Exam: ATRAUMATIC, NORMAL INSPECTION, NORMOCEPHALIC - Eye Exam Eye Exam: EOMI, Normal appearance, PERRL Pupil Exam: NORMAL ACCOMODATION, PERRL - ENT Exam ENT Exam: Mucous Membranes Moist, Normal Exam - Neck Exam Neck Exam: Full ROM, Normal Inspection. absent: Lymphadenopathy - Respiratory Exam Respiratory Exam: Decreased Breath Sounds - Cardiovascular Exam Cardiovascular Exam: REGULAR RHYTHM, +S1, +S2 - GI/Abdominal Exam GI & Abdominal Exam: Soft, Diminished Bowel Sounds - Rectal Exam Rectal Exam: Deferred Assessment and Plan - Assessment and Plan (Free Text) Plan: medications reviewed acetaminophen colace labs and xray reviewed treatment plan discussed with staff vitals checked
[2019-02-24] MEDS ORDERED: Midazolam 2 MG/2 ML VIAL ONE (11:42)
[2019-02-24] MEDS ORDERED: Propofol 10 mg/ml Inj (20 ML) ONE (11:42)
[2019-02-24] MEDS ORDERED: Succinylcholine Chloride 20 mg/ml Syr (5 ml) IV ONE (11:51)
--- NOTE | 2019-02-24 11:52 | CP.PCM.PN ---
Subjective - Date & Time of Evaluation Date of Evaluation: 02/24/19 Time of Evaluation: 11:52 - Subjective Subjective: AFEBRILE, aWAKE AND ALERT, SEEN POSTOPERATIVELY S/P LEFT TONSILLECTOMY AND DRAINAGE OF THE TONSILLAR ABSCESS. C/O MILD HOARSENESS/ aND PAIN. LABS; REVIEWED CXR : NAD. Objective - Vital Signs/Intake and Output Vital Signs (last 24 hours): Temp Pulse Resp BP Pulse Ox 98.2 F 84 20 121/83 95 02/24/19 07:34 02/24/19 07:34 02/24/19 07:34 02/24/19 07:34 02/24/19 07:34 Intake and Output: 02/24/19 02/24/19 06:59 18:59 Intake Total 460 Balance 460 - Medications Medications: Current Medications Docusate Sodium (Colace) 100 mg PO DAILY [facility] Last Admin: 02/24/19 10:06 Dose: Not Given Ceftriaxone Sodium 1 gm/ (Sodium Chloride) 100 mls @ 100 mls/hr IVPB DAILY [facility]; Protocol Last Admin: 02/24/19 10:19 Dose: 100 mls/hr Clindamycin Phosphate 300 mg/ (Sodium Chloride) 52 mls @ 100 mls/hr IVPB Q8H [facility]; Protocol Last Admin: 02/24/19 03:15 Dose: 100 mls/hr Ketorolac Tromethamine (Toradol) 15 mg IVP Q8 PRN PRN Reason: Pain, moderate (4-7) Last Admin: 02/24/19 10:18 Dose: 15 mg Ondansetron HCl (Zofran Inj) 4 mg IVP Q6 PRN PRN Reason: nausea Pantoprazole Sodium (Protonix Inj) 40 mg IVP DAILY [facility] Last Admin: 02/24/19 10:17 Dose: 40 mg - Labs Labs: 02/24/19 06:08 02/24/19 06:08 PT 11.8 SECONDS (9.7-12.2) 02/24/19 06:08 INR 1.1 02/24/19 06:08 APTT 31 SECONDS (21-34) 02/24/19 06:08 - Constitutional Appears: No Acute Distress - Head Exam Head Exam: NORMAL INSPECTION - Eye Exam Eye Exam: EOMI, PERRL - ENT Exam ENT Exam: Mucous Membranes Moist, Normal Oropharynx - Neck Exam Neck Exam: Lymphadenopathy, Normal Inspection (LT.CERVICAL LYMPHADENOPATHY.) - Respiratory Exam Respiratory Exam: Clear to Ausculation Bilateral, NORMAL BREATHING PATTERN - Cardiovascular Exam Cardiovascular Exam: REGULAR RHYTHM, +S1, +S2 - GI/Abdominal Exam GI & Abdominal Exam: Soft, Normal Bowel Sounds - Extremities Exam Extremities Exam: Normal Capillary Refill. absent: Calf Tenderness, Pedal Edema - Neurological Exam Neurological Exam: Alert, Awake, CN II-XII Intact, Oriented x3, Reflexes Normal - Psychiatric Exam Psychiatric exam: Normal Mood - Skin Skin Exam: Normal Color, Warm Assessment and Plan (1) Status post tonsillectomy Status: Acute (2) Laryngeal edema Status: Acute (3) Pharyngitis Status: Acute - Assessment and Plan (Free Text) Plan: CONTINUE iv ANTIBIOTICS iv rocephin iv cleocin. f/u cultures POST OPT CARE PER ENT.
[2019-02-24] MEDS ORDERED: HYDROmorphone 0.5 mg/0.5 ml ISec IVP PRN (12:16)
[2019-02-24] MEDS ORDERED: Acetaminophen/Codeine elixir 120-12mg/5ml PO PRN (14:00)
--- NOTE | 2019-02-24 22:54 | OP ---
PROCEDURE DATE: 02/24/2019 PREOPERATIVE DIAGNOSIS: Tonsillitis. POSTOPERATIVE DIAGNOSIS: Tonsillitis. PROCEDURE: Tonsillectomy. SIGNIFICANT FINDINGS: Left peritonsillar abscess, infected tonsils. DESCRIPTION OF PROCEDURE: The patient was brought into the room, placed in supine position. Anesthesia was initiated through an ET tube. The patient was draped in the usual manner. A mouth gag was placed in oral cavity, opened and suspended on the [employer] specialist the usual manner. The right tonsil was grabbed, pulled medially. Incision was made in the anterior tonsillar pillar using coblation. Dissection was done between tonsil and tonsillar fossa using coblation until the tonsil was removed. Bleeding was controlled using coblation. Next, the other tonsil was grabbed, pulled medially. Incision was made in the anterior tonsillar pillar using coblation. Dissection was done between tonsil and tonsillar fossa using coblation. During dissection a peritonsillar abscess was noted and opened. Dissections were continued until the tonsil was removed. Bleeding was controlled using coblation. Both tonsillar beds were rubbed vigorously with coblation wand. No bleeding was noted. The mouth gag was let down for 30 seconds, put back up, no bleeding was noted. The mouth gag was taken down and removed. The patient was taken off anesthesia and taken to recovery room in stable manner. Oscar Turner MD JOSE
[2019-02-25] MEDS: Clindamycin 300 MG in Sodium Chloride 0.9% 50 ML IVPB SCH ×3 (04:00→21:48)
--- NOTE | 2019-02-25 07:16 | CP.PCM.PN ---
Subjective - Date & Time of Evaluation Date of Evaluation: 02/25/19 Time of Evaluation: 07:16 - Subjective Subjective: Medicine Progress Note - Dr Ciara Penny's service Patient seen and examined at bedside. Per nursing no acute events overnight. Patient is s/p drainage of peritonsillar abscess. She is tolerating liquid diet. Voice hoarseness is still present. Offers no other complaints at this time. Objective - Vital Signs/Intake and Output Vital Signs (last 24 hours): Temp Pulse Resp BP Pulse Ox 97.6 F 60 20 109/67 96 02/25/19 00:00 02/25/19 00:00 02/25/19 00:00 02/25/19 00:00 02/25/19 00:00 Intake and Output: 02/25/19 02/25/19 06:59 18:59 Intake Total 640 Output Total 500 Balance 140 - Medications Medications: Current Medications Acetaminophen/Codeine Phosphate (Tylenol/Codeine Elixir) 10 ml PO Q6 PRN PRN Reason: Pain, severe (8-10) Stop: 03/03/19 14:01 Docusate Sodium (Colace) [address] [facility] Last Admin: 02/24/19 10:06 Dose: Not Given Ceftriaxone Sodium 1 gm/ (Sodium Chloride) 100 mls @ 100 mls/hr IVPB DAILY [facility]; Protocol Last Admin: 02/24/19 10:19 Dose: 100 mls/hr Clindamycin Phosphate 300 mg/ (Sodium Chloride) 52 mls @ 100 mls/hr IVPB Q8H [facility]; Protocol Last Admin: 02/25/19 04:00 Dose: 100 mls/hr Ketorolac Tromethamine (Toradol) 15 mg IVP Q8 PRN PRN Reason: Pain, moderate (4-7) Last Admin: 02/24/19 10:18 Dose: 15 mg Ondansetron HCl (Zofran Inj) 4 mg IVP Q6 PRN PRN Reason: nausea Pantoprazole Sodium (Protonix Inj) 40 mg IVP DAILY [facility] Last Admin: 02/24/19 10:17 Dose: 40 mg - Labs Labs: 02/24/19 06:08 02/24/19 06:08 PT 11.8 SECONDS (9.7-12.2) 02/24/19 06:08 INR 1.1 02/24/19 06:08 APTT 31 SECONDS (21-34) 02/24/19 06:08 - Additional Findings Additional findings: - Head Exam Head Exam: ATRAUMATIC, NORMAL INSPECTION - Eye Exam Eye Exam: EOMI, Normal appearance, PERRL Pupil Exam: NORMAL ACCOMODATION, PERRL - ENT Exam ENT Exam: Mucous Membranes Moist, Normal Oropharynx - Respiratory Exam Respiratory Exam: Clear to Ausculation Bilateral, NORMAL BREATHING PATTERN. absent: Prolonged Expiratory Phase, Respiratory Distress - Cardiovascular Exam Cardiovascular Exam: REGULAR RHYTHM, +S1, +S2 - GI/Abdominal Exam GI & Abdominal Exam: Soft, Normal Bowel Sounds. absent: Hyperactive Bowel Sounds - Extremities Exam Extremities Exam: Full ROM, Normal Inspection. absent: Pedal Edema - Back Exam Back Exam: NORMAL INSPECTION. absent: paraspinal tenderness - Neurological Exam Neurological Exam: Alert, Awake, CN II-XII Intact, Oriented x3 - Psychiatric Exam Psychiatric exam: Normal Affect, Normal Mood. absent: Depressed - Skin Skin Exam: Dry, Intact Assessment and Plan - Assessment and Plan (Free Text) Assessment: Patient is a 23 year old female presents to the hospital with shortness of breath for the past couple of days. Plan: Tonsillitis/Left Peritonsillar abscess Stable, afebrile S/P tonsillectomy POD#1 Antibiotics: Ceftriaxone 1gm IVPB Daily, Clindamycin 300mg IVPB Q8 Daily Zofran 4mg IVP Q6 PRN nausea Tylenol with Codeine 10ml Q6H PRN pain Mononucleosis, Influenzae, Group B strep all negative ENT Dr Turner consulted, help appreciated Infectious Disease consulted, Help appreciated Imaging: Soft tissue neck ct:Enlargement of the palatine tonsils with lesser enlargement of the lingual and adenoidal tonsils. Asymmetric, left greater than right. Mild displacement of the airway towards the right with mild narrowing. No abscess. There is edema or inflammatory change seen in the left parapharyngeal space. Cervical lymphadenopathy bilaterally (see full report) Hypokalemia Potassium 3.2 today Replete and continue to monitor PPX Protonix 40mg IVP Daily SCDs Dispo: Continue IV antibiotics. Pending ENT clearance for discharge home Plan discussed with Dr Zohaib Mix DO PGY-2
[2019-02-25 11:42] LABS: BASO % 0.2 % (0.0-2.0); EOS # 0.2 K/uL (0.0-0.7); HEMOGLOBIN 12.4 g/dL (11.0-16.0); LYMPH # 3.8 K/uL (1.0-4.3); LYMPH % 23.8 % (20.0-40.0); MEAN CELL VOLUME 84.4 fL (81.0-99.0); MEAN CORPUSCULAR HEMOGLOBIN 28.1 pg (27.0-31.0); MEAN CORPUSCULAR HGB CONC 33.3 g/dL (33.0-37.0); MEAN PLATELET VOLUME 8.2 fL (7.2-11.7); MONO # 2.1 K/uL (0.0-0.8); MONO % 13.4 % (0.0-10.0); NEUT # 9.8 K/uL (1.8-7.0); NEUT % 61.6 % (50.0-75.0); NRBC % 0.1 % (0.0-2.0); RBC 4.41 Mil/uL (3.80-5.20); RED CELL DISTRIBUTION WIDTH 12.9 % (11.5-14.5); WHITE BLOOD COUNT 15.9 K/uL (4.8-10.8)
[2019-02-25 12:08] LABS: ALB/GLOB RATIO 1.1 (1.0-2.1); ALBUMIN 3.5 g/dL (3.5-5.0); ALT/SGPT 27 U/L (9-52); AST/SGOT 21 U/L (14-36); BLOOD UREA NITROGEN 12 mg/dL (7-17); CALCIUM 9.1 mg/dl (8.6-10.4); GFR NON-AFRICAN AMERICAN > 60
[2019-02-25] MEDS ORDERED: Potassium Chloride 20 mEq/15 ml LIQ UD PO ONE (13:30)
[2019-02-25 16:58] VITALS: RESP 20
[2019-02-25] MEDS ORDERED: Potassium Chloride 20 mEq ER Tab PO STA (16:58)
--- NOTE | 2019-02-25 18:32 | CP.PCM.PN ---
Subjective - Date & Time of Evaluation Date of Evaluation: 02/25/19 Time of Evaluation: 18:32 - Subjective Subjective: No acute events overnight. +VE HOARSENESS Patient is s/p drainage of peritonsillar abscess. She is tolerating liquid diet. WANTS REGULAR DIET MOTHER AT BED SIDE. Objective - Vital Signs/Intake and Output Vital Signs (last 24 hours): Temp Pulse Resp BP Pulse Ox 98.3 F 66 20 118/82 96 02/25/19 16:56 02/25/19 16:56 02/25/19 16:56 02/25/19 16:56 02/25/19 16:56 Intake and Output: 02/25/19 02/25/19 06:59 18:59 Intake Total 640 300 Output Total 500 Balance 140 300 - Medications Medications: Current Medications Acetaminophen/Codeine Phosphate (Tylenol/Codeine Elixir) 10 ml PO Q6 PRN PRN Reason: Pain, severe (8-10) Stop: 03/03/19 14:01 Docusate Sodium (Colace) 100 mg PO DAILY [facility] Last Admin: 02/25/19 10:00 Dose: 100 mg Ceftriaxone Sodium 1 gm/ (Sodium Chloride) 100 mls @ 100 mls/hr IVPB DAILY [facility]; Protocol Last Admin: 02/25/19 11:10 Dose: 100 mls/hr Clindamycin Phosphate 300 mg/ (Sodium Chloride) 52 mls @ 100 mls/hr IVPB Q8H [facility]; Protocol Last Admin: 02/25/19 12:54 Dose: 100 mls/hr Ketorolac Tromethamine (Toradol) 15 mg IVP Q8 PRN PRN Reason: Pain, moderate (4-7) Last Admin: 02/24/19 10:18 Dose: 15 mg Ondansetron HCl (Zofran Inj) 4 mg IVP Q6 PRN PRN Reason: nausea Pantoprazole Sodium (Protonix Inj) 40 mg IVP DAILY [facility] Last Admin: 02/25/19 10:00 Dose: 40 mg - Labs Labs: 02/25/19 10:15 02/25/19 10:15 PT 11.8 SECONDS (9.7-12.2) 02/24/19 06:08 INR 1.1 02/24/19 06:08 APTT 31 SECONDS (21-34) 02/24/19 06:08 - Constitutional Appears: No Acute Distress - Head Exam Head Exam: NORMAL INSPECTION - Eye Exam Eye Exam: EOMI, PERRL - ENT Exam ENT Exam: Mucous Membranes Moist, Normal Oropharynx - Neck Exam Neck Exam: Normal Inspection - Respiratory Exam Respiratory Exam: Clear to Ausculation Bilateral, NORMAL BREATHING PATTERN - Cardiovascular Exam Cardiovascular Exam: REGULAR RHYTHM, +S1, +S2 - GI/Abdominal Exam GI & Abdominal Exam: Soft, Normal Bowel Sounds - Extremities Exam Extremities Exam: Normal Capillary Refill. absent: Calf Tenderness, Pedal Edema - Neurological Exam Neurological Exam: Alert, Awake, CN II-XII Intact, Oriented x3 - Psychiatric Exam Psychiatric exam: Normal Mood - Skin Skin Exam: Normal Color, Warm Assessment and Plan (1) Status post tonsillectomy Status: Acute (2) Laryngeal edema Status: Acute (3) Pharyngitis Status: Acute - Assessment and Plan (Free Text) Plan: CONTINUE iv ANTIBIOTICS iv rocephin /iv cleocin. APRIL DC IV ABX IN AM PO KEFLEX 250MG PO TID X 5 DAYS PO BACID I TAB PO HS X 5DAYS POST OPT CARE PER ENT. AVOID SPICY AND ACIDIC FOODS CASE DISCUSSED WITH DR Ciara MCKEON.
--- NOTE | 2019-02-25 19:29 | CP.PCM.PN ---
Subjective - Date & Time of Evaluation Date of Evaluation: 02/25/19 - Subjective Subjective: patient examined at bedside is awake and alert no nausea no vomiting no SOB no fever Objective - Vital Signs/Intake and Output Vital Signs (last 24 hours): Temp Pulse Resp BP Pulse Ox 98.3 F 66 20 118/82 96 02/25/19 16:56 02/25/19 16:56 02/25/19 16:56 02/25/19 16:56 02/25/19 16:56 Intake and Output: 02/25/19 02/26/19 18:59 06:59 Intake Total 300 Balance 300 - Medications Medications: Current Medications Acetaminophen/Codeine Phosphate (Tylenol/Codeine Elixir) 10 ml PO Q6 PRN PRN Reason: Pain, severe (8-10) Stop: 03/03/19 14:01 Docusate Sodium (Colace) 100 mg PO DAILY [facility] Last Admin: 02/25/19 10:00 Dose: 100 mg Ceftriaxone Sodium 1 gm/ (Sodium Chloride) 100 mls @ 100 mls/hr IVPB DAILY [facility]; Protocol Last Admin: 02/25/19 11:10 Dose: 100 mls/hr Clindamycin Phosphate 300 mg/ (Sodium Chloride) 52 mls @ 100 mls/hr IVPB Q8H [facility]; Protocol Last Admin: 02/25/19 12:54 Dose: 100 mls/hr Ketorolac Tromethamine (Toradol) 15 mg IVP Q8 PRN PRN Reason: Pain, moderate (4-7) Last Admin: 02/24/19 10:18 Dose: 15 mg Ondansetron HCl (Zofran Inj) 4 mg IVP Q6 PRN PRN Reason: nausea Pantoprazole Sodium (Protonix Inj) 40 mg IVP DAILY [facility] Last Admin: 02/25/19 10:00 Dose: 40 mg - Labs Labs: 02/25/19 10:15 02/25/19 10:15 PT 11.8 SECONDS (9.7-12.2) 02/24/19 06:08 INR 1.1 02/24/19 06:08 APTT 31 SECONDS (21-34) 02/24/19 06:08 - Constitutional Appears: Well - Head Exam Head Exam: ATRAUMATIC, NORMAL INSPECTION, NORMOCEPHALIC - Eye Exam Eye Exam: EOMI, Normal appearance, PERRL Pupil Exam: NORMAL ACCOMODATION, PERRL - ENT Exam ENT Exam: Mucous Membranes Moist, Normal Exam - Neck Exam Neck Exam: Full ROM, Normal Inspection. absent: Lymphadenopathy - Respiratory Exam Respiratory Exam: Decreased Breath Sounds - Cardiovascular Exam Cardiovascular Exam: REGULAR RHYTHM, +S1, +S2 - GI/Abdominal Exam GI & Abdominal Exam: Soft, Diminished Bowel Sounds - Rectal Exam Rectal Exam: Deferred Assessment and Plan - Assessment and Plan (Free Text) Plan: vitals reviewed labs reviewed medications reviewed cleocin colace potassium chloride oral soln protonix inj rocephin toradol tylenol/codeines elixir zofran inj
[2019-02-26 00:56] VITALS: O2SAT 97
[2019-02-26] MEDS: Clindamycin 300 MG in Sodium Chloride 0.9% 50 ML IVPB SCH ×2 (04:10→11:00)
[2019-02-26 08:03] VITALS: BP 110/68; PULSE 70; TEMP 98.4
--- NOTE | 2019-02-26 11:31 | CP.PCM.PN ---
Subjective - Date & Time of Evaluation Date of Evaluation: 02/26/19 Time of Evaluation: 11:31 - Subjective Subjective: afebrile, no complaints Objective - Vital Signs/Intake and Output Vital Signs (last 24 hours): Temp Pulse Resp BP Pulse Ox 98.4 F 70 20 110/68 97 02/26/19 08:00 02/26/19 08:00 02/26/19 08:00 02/26/19 08:00 02/26/19 08:00 Intake and Output: 02/26/19 02/26/19 06:59 18:59 Intake Total 840 Output Total 500 Balance 340 - Medications Medications: Current Medications Acetaminophen/Codeine Phosphate (Tylenol/Codeine Elixir) 10 ml PO Q6 PRN PRN Reason: Pain, severe (8-10) Stop: 03/03/19 14:01 Docusate Sodium (Colace) 100 mg PO DAILY [facility] Last Admin: 02/26/19 09:09 Dose: 100 mg Ceftriaxone Sodium 1 gm/ (Sodium Chloride) 100 mls @ 100 mls/hr IVPB DAILY [facility]; Protocol Last Admin: 02/26/19 09:09 Dose: 100 mls/hr Clindamycin Phosphate 300 mg/ (Sodium Chloride) 52 mls @ 100 mls/hr IVPB Q8H [facility]; Protocol Last Admin: 02/26/19 11:00 Dose: 100 mls/hr Ketorolac Tromethamine (Toradol) 15 mg IVP Q8 PRN PRN Reason: Pain, moderate (4-7) Last Admin: 02/24/19 10:18 Dose: 15 mg Ondansetron HCl (Zofran Inj) 4 mg IVP Q6 PRN PRN Reason: nausea Pantoprazole Sodium (Protonix Inj) 40 mg IVP DAILY [facility] Last Admin: 02/26/19 09:09 Dose: 40 mg - Labs Labs: 02/25/19 10:15 02/25/19 10:15 PT 11.8 SECONDS (9.7-12.2) 02/24/19 06:08 INR 1.1 02/24/19 06:08 APTT 31 SECONDS (21-34) 02/24/19 06:08 - Constitutional Appears: No Acute Distress - Head Exam Head Exam: NORMAL INSPECTION - Eye Exam Eye Exam: EOMI, PERRL - ENT Exam ENT Exam: Mucous Membranes Moist (throat mildly congested), Normal Oropharynx - Neck Exam Neck Exam: Normal Inspection - Respiratory Exam Respiratory Exam: Clear to Ausculation Bilateral - Cardiovascular Exam Cardiovascular Exam: REGULAR RHYTHM, +S1, +S2 - GI/Abdominal Exam GI & Abdominal Exam: Soft, Normal Bowel Sounds. absent: Tenderness - Extremities Exam Extremities Exam: Normal Capillary Refill. absent: Calf Tenderness, Pedal Edema - Neurological Exam Neurological Exam: Alert, Awake, CN II-XII Intact, Normal Gait, Oriented x3, Reflexes Normal - Psychiatric Exam Psychiatric exam: Normal Mood - Skin Skin Exam: Normal Color, Warm Assessment and Plan (1) Status post tonsillectomy Status: Acute (2) Laryngeal edema Status: Acute (3) Pharyngitis Status: Acute - Assessment and Plan (Free Text) Plan: PO KEFLEX 250MG PO TID X 5 DAYS PO BACID I TAB PO HS X 5DAYS POST OPT CARE PER ENT. AVOID SPICY AND ACIDIC FOODS CASE DISCUSSED WITH DR Ciara MCKEON.
--- NOTE | 2019-02-26 12:22 | CP.PCM.PN ---
Subjective - Date & Time of Evaluation Date of Evaluation: 02/26/19 - Subjective Subjective: no nausea no fever no diarrhea no SOB no vomiting Objective - Vital Signs/Intake and Output Vital Signs (last 24 hours): Temp Pulse Resp BP Pulse Ox 98.4 F 70 20 110/68 97 02/26/19 08:00 02/26/19 08:00 02/26/19 08:00 02/26/19 08:00 02/26/19 08:00 Intake and Output: 02/26/19 02/26/19 06:59 18:59 Intake Total 840 Output Total 500 Balance 340 - Medications Medications: Current Medications Acetaminophen/Codeine Phosphate (Tylenol/Codeine Elixir) 10 ml PO Q6 PRN PRN Reason: Pain, severe (8-10) Stop: 03/03/19 14:01 Docusate Sodium (Colace) 100 mg PO DAILY [facility] Last Admin: 02/26/19 09:09 Dose: 100 mg Ceftriaxone Sodium 1 gm/ (Sodium Chloride) 100 mls @ 100 mls/hr IVPB DAILY [facility]; Protocol Last Admin: 02/26/19 09:09 Dose: 100 mls/hr Clindamycin Phosphate 300 mg/ (Sodium Chloride) 52 mls @ 100 mls/hr IVPB Q8H [facility]; Protocol Last Admin: 02/26/19 11:00 Dose: 100 mls/hr Ketorolac Tromethamine (Toradol) 15 mg IVP Q8 PRN PRN Reason: Pain, moderate (4-7) Last Admin: 02/24/19 10:18 Dose: 15 mg Ondansetron HCl (Zofran Inj) 4 mg IVP Q6 PRN PRN Reason: nausea Pantoprazole Sodium (Protonix Inj) 40 mg IVP DAILY [facility] Last Admin: 02/26/19 09:09 Dose: 40 mg - Labs Labs: 02/25/19 10:15 02/25/19 10:15 PT 11.8 SECONDS (9.7-12.2) 02/24/19 06:08 INR 1.1 02/24/19 06:08 APTT 31 SECONDS (21-34) 02/24/19 06:08 - Constitutional Appears: Well - Head Exam Head Exam: ATRAUMATIC, NORMAL INSPECTION, NORMOCEPHALIC - Eye Exam Eye Exam: EOMI, Normal appearance, PERRL Pupil Exam: NORMAL ACCOMODATION, PERRL - ENT Exam ENT Exam: Mucous Membranes Moist, Normal Exam - Neck Exam Neck Exam: Full ROM, Normal Inspection. absent: Lymphadenopathy - Respiratory Exam Respiratory Exam: Decreased Breath Sounds - Cardiovascular Exam Cardiovascular Exam: REGULAR RHYTHM, +S1, +S2 - GI/Abdominal Exam GI & Abdominal Exam: Soft, Diminished Bowel Sounds - Rectal Exam Rectal Exam: Deferred Assessment and Plan - Assessment and Plan (Free Text) Plan: vitals reviewed labs reviewed medications reviewed cleocin 300mg colace 100mg k-dur 20 meq er tab potassium chloride oral sln protonix inj rocephin toradol tylenol/codeine elixir zofran inj
[2019-02-26] MEDS ORDERED: Pneumococcal 23-Valent Vaccine IM ONE (14:30)
== END 2019-02-26 15:07 | disposition home or self-care (01) | DRG 59 ==
LOC: C.ER 14:42 → C.9E 18:05 → C.3T 18:56 → OBSVTOIN 02-23 14:05
PROVIDERS: ADMIT Internal Medicine Nephrology; ATTEND Internal Medicine Nephrology
PROC: 0CJS8ZZ Inspection of Larynx, Via Natural or Artificial Opening Endoscopic (ICD-10-PCS; 2019-02-24)
PROC: 0CTPXZZ Resection of Tonsils, External Approach (ICD-10-PCS; principal; 2019-02-24 12:45)
DX: J36 Peritonsillar abscess (principal); E87.6 Hypokalemia; J38.4 Edema of larynx; E86.0 Dehydration